=== PATIENT | female | born 1960 | race Caucasian/White ===

== ENCOUNTER 2017-08-26 01:31 | Emergency (ER) | payer MEDICARE ==
[~2017-08-26] VITALS: Ht 177.8 cm; Wt 92.8 kg
[~2017-08-26 01:31] MED LIST: ACTOS15 MG PO; AMLODIPINE2.5 MG PO; AMOXICILLIN500 MG OR; ASPIRIN EC81 MG PO; BACTRIM DS1 TAB PO; CEPHALEXIN500 MG PO; CIPRO500 MG OR; DIFLUCAN150 MG PO; DULERA1 AE1 IN; ESCITALOPRAM OX10 MG PO; EXFORGE1 TA1 OR; FLAGYL500 MG OR; FLEXERIL OR; FLEXERIL5 MG PO; FLONASE NASAL50 MCG; GLIMEPIRIDE2 MG PO; GLIPIZIDE XL2.5 MG PO; GLIPIZIDE10 MG PO; JANUMET1 TAB PO; JANUVIA50 MG PO; LEVEMIR1000 UNITS SC; LISINOPRIL20 MG PO; LISINOPRIL5 MG PO; MEDDOSEPAK OR; METFORMIN500 M1 OR; METFORMIN500 MG PO; NAPROSYN375 MG PO; NAPROSYN500 MG OR; NAPROXEN250 MG PO; NO HOME MEDS; NO MEDS; NORVASC5 MG PO; NOVOLOG100 IU/1 M SC; PAXIL30 MG PO; PENICILLN VK500 MG PO; PERCOCET 5/325M1 TAB PO; PHENERGAN SUPP RE; PLETAL50 MG PO; PROMETHAZINE25 M1 RE; ROBITUSS11 OR; ROBITUSSIN AC10 ML PO; SERTRALINE HCL50 MG PO; TESSALON200 MG OR; TORADOL OR; ULTRAM50 M1 OR; ULTRAM50 M1 PO; ZPAK PO
[2017-08-26] MEDS ORDERED: METFORMIN500 MG PO (01:53)
[2017-08-26] MEDS ORDERED: CILOSTAZOL50 MG PO (01:55)
[2017-08-26] MEDS ORDERED: AMLODIPINE2.5 MG PO (01:57)
[2017-08-26] MEDS ORDERED: CYMBALTA20 MG PO (02:02)
[2017-08-26] MEDS ORDERED: LORTAB 1010 MG PO (03:02)
[2017-08-26] MEDS ORDERED: BACTRIM DS1 TAB PO (03:02)
[2017-08-26] MEDS ORDERED: CEPHALEXIN500 MG PO (03:02)
[2017-08-26 03:15] VITALS: BP 140/84
== END 2017-08-26 03:15 | disposition home or self-care (01) ==
LOC: ED 01:31
PROC: 0H95XZZ Drainage of Chest Skin, External Approach (ICD-10-PCS; principal; 2017-08-26)
DX: L02.213 Cutaneous abscess of chest wall (principal); I10 Essential (primary) hypertension; E11.9 Type 2 diabetes mellitus without complications; Z86.73 Personal history of transient ischemic attack (TIA), and cerebral infarction without residual deficits

== ENCOUNTER 2017-08-27 13:34 | Emergency (ER) | payer MEDICARE ==
[~2017-08-27] VITALS: Ht 177.8 cm; Wt 100.0 kg
[~2017-08-27 13:34] MED LIST changes: +CILOSTAZOL50 MG PO; +CYMBALTA20 MG PO; +LORTAB 1010 MG PO
[2017-08-27 14:00] VITALS: BP 138/77
== END 2017-08-27 14:00 | disposition home or self-care (01) ==
LOC: ED 13:34
DX: Z48.01 Encounter for change or removal of surgical wound dressing (principal); L02.213 Cutaneous abscess of chest wall

== ENCOUNTER 2024-10-31 14:05 | Day surgery (SDC) | payer MEDICARE ==
[~2024-10-31] VITALS: Ht 177.8 cm; Wt 89.0 kg
[2024-10-31] VITALS (16 sets, daily range): BP systolic 125–167; BP diastolic 61–96
[~2024-10-31 14:05] MED LIST changes: +PROPOFOL 200 MG/20 ML VIAL IV ONE; +SUCCINYLCHOLINE CHLORIDE 20 MG/ML 10ML VIAL IV ONE
[2024-10-31] MEDS ORDERED: GLUCAGON HCL (Rdna) 1 MG VIAL IV ONE (14:15)
[2024-10-31 14:26] LABS: BASO% 0.2 % (0-3); EOS% 1.8 % (0-8); HEMATOCRIT 42.4 % (37.0-47.0); HEMOGLOBIN 14.9 g/dl (12.0-16.0); IMMATURE GRANULOCYTES 0.2 % (0.0-5.0); LYMPH% 23.8 % (15-41); MEAN CELL VOLUME 82.3 fL CALC (80.0-100.0); MEAN CORPUSCULAR HGB 28.9 pG CALC (26.0-32.0); MEAN CORPUSCULAR HGB CONC 35.1 g/dL CAL (32.0-36.0); MONO% 5.8 % (2-13); NEUT# 6.12 thou/uL (2.00-7.15); NEUT% 68.2 % (42-76); RED BLOOD COUNT 5.15 mill/uL (4.20-5.60); RED CELL DISTRI WIDTH 11.5 % (11.5-15.5)
[2024-10-31 14:37] LABS: ALBUMIN 4.4 g/dL (3.2-5.0); BILIRUBIN, TOTAL 0.8 mg/dL (0.02-1.3); CREATININE 0.8 mg/dL (0.5-1.0); POTASSIUM 4.6 mmol/l (3.5-5.1); TOTAL PROTEIN 7.1 g/dL (6.3-8.2)
[2024-10-31] MEDS ORDERED: LACTATED RINGER'S 1,000 ML IV ONE (14:50)
[2024-10-31] MEDS ORDERED: INSULIN REGULAR (HUMAN) 100 UNIT/ML INJ IV ONE (14:50)
[2024-10-31] MEDS ORDERED: INSULIN LISPRO 100 UNITS/ML ML SC ONE (16:45)
[2024-10-31] MEDS ORDERED: FAMOTIDINE 10MG/ML 2ML SDV IV ONE (17:15)
[2024-10-31] MEDS ORDERED: SODIUM CHLORIDE 0.9% 1,000 ML IV ONE ×2 (17:15→17:58)
[2024-10-31] MEDS ORDERED: DEXTROSE 250 ML IV PRN (18:20)
[2024-10-31] MEDS ORDERED: ONDANSETRON HCl 4 MG/2 ML SDV IV PRN (18:20)
[2024-10-31] MEDS ORDERED: LABETALOL HCL 20 MG/ 4 ML CARTRG IV PRN (18:20)
[2024-10-31] MEDS ORDERED: STERILE WATER FOR IRRIGATION 1,000 ML BTL IR ONE (18:53)
[2024-10-31] MEDS ORDERED: INSULIN LISPRO 100 UNITS/ML ML SC SCH (21:00)
[2024-11-01 02:48] VITALS: BP 122/59
[2024-11-01 04:00] VITALS: BP 122/59
[2024-11-01 07:00] VITALS: BP 129/70
== END 2024-11-01 12:27 | disposition home or self-care (01) ==
LOC: ED 14:05 → MS2 15:52 → ORM 15:52 → MS2 18:20 → ORM 11-01 12:27
PROVIDERS: Nurse Practitioner; ATTEND Surgery
PROC: 0DB58ZX Excision of Esophagus, Via Natural or Artificial Opening Endoscopic, Diagnostic (ICD-10-PCS; principal; 2024-10-31)
PROC: 0D758ZZ Dilation of Esophagus, Via Natural or Artificial Opening Endoscopic (ICD-10-PCS; 2024-10-31)
DX: T18.128A Food in esophagus causing other injury, initial encounter (principal); K22.2 Esophageal obstruction; K22.81 Esophageal polyp; I10 Essential (primary) hypertension; E11.9 Type 2 diabetes mellitus without complications; W44.F3XA Food entering into or through a natural orifice, initial encounter; Z86.73 Personal history of transient ischemic attack (TIA), and cerebral infarction without residual deficits; Z79.84 Long term (current) use of oral hypoglycemic drugs; Z79.4 Long term (current) use of insulin
CPT/HCPCS: J1610; J1815